=== PATIENT | male | born 2000 | race American Indian/Alaskan Native ===

== ENCOUNTER 2020-10-09 19:40 | Emergency (ER) | payer SELFPAY ==
[2020-10-09 19:48] VITALS: BP 118/50
--- NOTE | 2020-10-09 21:21 | Emergency Department Report ---
Chief Complaint: Anxiety Stated Complaint: RADHA - HPI History of Present Illness: 20-year-old -[place] male presents to the emergency room stating he has shortness of breath when he has anxiety. Patient states that he often suffers from anxiety but has not followed up with anyone. Patient states that he has trouble sleeping and staying focused. Patient denies any suicidal homicidal ideation. Patient reports that he is breathing has improved since sitting in the waiting area. - Exam Vital Signs: Vital Signs 10/09/20 19:45 Temperature 98.0 F Pulse Rate 79 Respiratory 20 Rate Blood Pressure 118/50 O2 Sat by Pulse 100 Oximetry Physical Exam: Patient is alert and oriented x3 no acute distress nontoxic in appearance Patient has nonlabored breathing no accessory muscles use Patient is very hyper but able to be redirected MSE screening note: Focused history and physical exam performed. Due to findings the following was ordered: 20-year-old -[place] male presents to the emergency room stating he has shortness of breath when he has anxiety. Patient states that he often suffers from anxiety but has not followed up with anyone. Patient states that he has trouble sleeping and staying focused. Patient denies any suicidal homicidal ideation. Patient reports that he is breathing has improved since sitting in the waiting area. ED Disposition for MSE Disposition: Z- MED SCREENING EXAM-LEFT Is pt being admited?: No Does the pt Need Aspirin: No Condition: Stable Instructions: Managing Anxiety, Adult, Generalized Anxiety Disorder, Adult Additional Instructions: Follow up with a mental health provider. Try melatonin 5mg before bed. Refrain from drinking caffeine prior to bed. Referrals: [facility] [Outside] - 3-5 Days Forms: Work/School Release Form(ED)
== END 2020-10-09 22:00 | disposition left against medical advice (07) ==
LOC: ED 19:40
DX: R06.02 Shortness of breath (principal); Z53.21 Procedure and treatment not carried out due to patient leaving prior to being seen by health care provider